=== PATIENT | female | born 1970 | race Caucasian/White ===

== ENCOUNTER 2019-12-03 19:40 | Emergency (ER) | payer SELFPAY ==
--- NOTE | 2019-12-03 21:37 | ER Document Report ---
ED Medical Screen (RME) - General Chief Complaint: Low Back Pain Stated Complaint: LOWER BACK PAIN Time Seen by Provider: 12/03/19 21:32 Primary Care Provider: RANDY GROSSMAN MD [Primary Care Provider] - Follow up as needed Notes: 49-year-old female presented to ED for complaint of pain in her lower back that started about 4:30 PM while she was sitting at her desk. She states it radiates down both legs. She states she did see her primary care earlier in the week on Friday they did some blood work and said that her kidney function was down to 57%. She states she also went to the [facility] and had EKG and heart ultrasound and they were both negative. Patient is alert and oriented complaining of pain that is gotten worse while she is been sitting here. I have greeted and performed a rapid initial assessment of this patient. A comprehensive ED assessment and evaluation of the patient, analysis of test results and completion of medical decision making process will be conducted by an additional ED providers. 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 Lives with: Family Family history: Reviewed & Not Pertinent - Past Medical History Cardiac Medical History: Reports: None Pulmonary Medical History: Reports: None EENT Medical History: Reports: None Neurological Medical History: Reports: None Endocrine Medical History: Reports: None Renal/ Medical History: Reports: None Malignancy Medical History: Reports: None GI Medical History: Reports: None Skin Medical History: Reports None Psychiatric Medical History: Reports: Hx Depression Traumatic Medical History: Reports: None Infectious Medical History: Reports: None Past Surgical History: Reports: Hx Appendectomy, Hx Cholecystectomy - Immunizations Hx Diphtheria, Pertussis, Tetanus Vaccination: No Physical Exam - Vital signs Vitals: Temp Pulse BP Pulse Ox 98.2 F 85 129/85 H 98 12/03/19 19:52 12/03/19 19:52 12/03/19 19:52 12/03/19 19:52 Course - Vital Signs Vital signs: Temp Pulse Resp BP Pulse Ox 98.2 F 85 129/85 H 98 12/03/19 19:52 12/03/19 19:52 12/03/19 19:52 12/03/19 19:52 Doctor's Discharge - Discharge Referrals: RANDY GROSSMAN MD [Primary Care Provider] - Follow up as needed
[2019-12-03] MEDS ORDERED: CYCLOBENZAPRINE HCL 10 MG TABLET PO ONE (21:38)
--- NOTE | 2019-12-03 22:38 | RADIOLOGY REPORT (SQ) ---
EXAM DESCRIPTION: XR LUMBAR SPINE ANTEROPOSTERIOR, LATERAL, AND OBLIQUES COMPLETED DATE/TME: 12/03/2019 21:37 CLINICAL HISTORY: 49 years, Female, low back pain COMPARISON: None. NUMBER OF VIEWS: TECHNIQUE: LIMITATIONS: None. FINDINGS: There is evidence of degenerative disc disease in the lower thoracic spine. There is mild degenerative vertebral body spurring in the lumbar spine. 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 There is a lumbar dextroscoliosis. IMPRESSION: Degenerative changes and scoliosis. copyright 2010 [employer]- All Rights Reserved
[2019-12-04] MEDS ORDERED: ACETAMINOPHEN 325 MG TABLET PO ONE (02:12)
[2019-12-04] MEDS ORDERED: DIAZEPAM 5 MG TABLET PO ONE (06:10)
[2019-12-04] MEDS ORDERED: DEXAMETHASONE SOD PHOS INJ 10 MG/1 ML VIAL IM ONE (06:10)
--- NOTE | 2019-12-04 06:12 | ER Document Report ---
ED General - General Chief Complaint: Low Back Pain Stated Complaint: LOWER BACK PAIN Time Seen by Provider: 12/03/19 21:32 Primary Care Provider: RANDY GROSSMAN MD [EMERITUS] - Follow up in 3-5 days Notes: 49-year-old female presents with low back pain that started while she was at work. Patient states she was sitting in her chair around 430 when it started. Patient denies any difficulty with urinating or defecating, fever, saddle anesthesia, IV drug use, or any other injuries. Patient was given Tylenol and Flexeril out in triage which she states helped with the pain. Patient also denies any nausea/vomiting, diarrhea, constipation, abdominal pain, chest pain, dyspnea. - Related Data Allergies/Adverse Reactions: Penicillins Allergy (Unknown, Verified 07/06/13 11:47) Past Medical History - General Information source: Patient - Social History Smoking Status: Never Smoker Cigarette use (# per day): No Frequency of alcohol use: None Drug Abuse: None Occupation: [employer] Lives with: Family Family History: Reviewed & Not Pertinent Patient has suicidal ideation: No Patient has homicidal ideation: No - Past Medical History Cardiac Medical History: Reports: None Pulmonary Medical History: Reports: None EENT Medical History: Reports: None Neurological Medical History: Reports: None Endocrine Medical History: Reports: None Renal/ Medical History: Reports: None Malignancy Medical History: Reports: None GI Medical History: Reports: None Skin Medical History: Reports None Psychiatric Medical History: Reports: Hx Depression Traumatic Medical History: Reports: None Infectious Medical History: Reports: None Past Surgical History: Reports: Hx Appendectomy, Hx Cholecystectomy - Immunizations Hx Diphtheria, Pertussis, Tetanus Vaccination: No Review of Systems - Review of Systems Notes: Constitutional: Negative for fever. HENT: Negative for sore throat. Eyes: Negative for visual changes. Cardiovascular: Negative for chest pain. Respiratory: Negative for shortness of breath. Gastrointestinal: Negative for abdominal pain, vomiting or diarrhea. Genitourinary: Negative for dysuria. Musculoskeletal: Positive for back pain. Skin: Negative for rash. Neurological: Negative for headaches, weakness or numbness. 10 point ROS negative except as marked above and in HPI. Physical Exam - Vital signs Vitals: Temp Pulse BP Pulse Ox 98.2 F 85 129/85 H 98 12/03/19 19:52 12/03/19 19:52 12/03/19 19:52 12/03/19 19:52 - Notes Notes: GENERAL: Well-appearing, well-nourished and in no acute distress. HEAD: Atraumatic, normocephalic. EYES: Extraocular movements intact, sclera anicteric, conjunctiva are normal. NECK: Normal range of motion, supple without lymphadenopathy or JVD. EXTREMITIES: Normal range of motion, no pitting or edema. No clubbing or cyanosis. BACK: Mild spinal tenderness to lower L spine. No spinal tenderness to cervical or thoracic. NEUROLOGICAL: Cranial nerves II through XII grossly intact. Normal speech, normal gait. PSYCH: Normal mood, normal affect. SKIN: Warm, Dry, normal turgor, no rashes or lesions noted. Course - Re-evaluation Re-evalutation: 12/04/19 No rapid progression of symptoms, systemic symptoms including fevers, chills, weight loss, history of recent bacterial infection, bilateral symptoms, numbness, weakness, difficulty walking, urinary retention or bowel incontinence, personal history of cancer, immunosuppression, diabetes, known AAA, or history of IV drug use. Exam is without pulsatile abdominal mass, and patient has symmetric and intact lower extremity strength. Mild tenderness to L spine. X-ray shows degenerative changes and scoliosis without fracture. Pt had mild improvement in symptoms with Tylenol and Flexeril. Ordered solumedrol injection and Valium. Pt elected not to stay to see if medications worked, stating she would like to go home. Pt prescribed Medrol dose pack and Valium with close follow up with PCP. Strict return precautions given. Pt voices understanding and agrees with plan of care. - Vital Signs Vital signs: Temp Pulse Resp BP Pulse Ox 98.2 F 83 115/53 L 100 12/03/19 19:52 12/04/19 05:32 12/04/19 05:32 12/04/19 05:32 Discharge - Discharge Clinical Impression: Low back pain Qualifiers: Chronicity: acute Back pain laterality: midline Sciatica presence: unspecified whether sciatica present Qualified Code(s): M54.5 - Low back pain Condition: Stable Disposition: HOME, SELF-CARE Instructions: Ice Packs ([facility]), Low Back Pain ([facility]), Muscle Strain ([facility]), Warm Packs ([facility]) Additional Instructions: Please take medications as prescribed. Do not drink or drive while taking Valium as it may make you drowsy. Please follow-up with your primary care doctor in 2 to 3 days. Return immediately to ER if you start having any worsening symptoms, including worsening pain, inability to urinate or defecate, numbness to your private area, weakness, inability to walk, fever, chest pain, s hortness of breath, or any other symptoms that are concerning to you. Prescriptions: Methylprednisolone [Medrol Dosepack (4 mg/Tab) 21 Tab/Dosepak] 4 mg PO ASDIR PRN #21 tab.ds.pk PRN Reason: Diazepam [Valium 5 mg Tablet] 5 mg PO QIDP PRN #15 tablet PRN Reason: Forms: Return to Work Referrals: RANDY GROSSMAN MD [EMERITUS] - Follow up in 3-5 days
[2019-12-04 07:02] VITALS: BP 103/53
== END 2019-12-04 07:12 | disposition home or self-care (01) ==
LOC: ER 19:40
DX: M54.5 Low back pain (principal); M41.9 Scoliosis, unspecified; M51.34 Other intervertebral disc degeneration, thoracic region; Z88.0 Allergy status to penicillin
CPT/HCPCS: 99283; 96372; 72110; J1100